=== PATIENT | male | born 1950 | race African-American/Black ===

== ENCOUNTER 2019-03-29 09:30 | Inpatient (IN) | payer OTHER ==
[~2019-03-29] VITALS: Ht 172.7 cm; Wt 97.7 kg
[2019-03-29] VITALS (7 sets, daily range): BP systolic 106–136; BP diastolic 61–79
[2019-03-29 09:59] LABS: HEMATOCRIT 36.3 % (42.0-52.0); HEMOGLOBIN 11.9 gm/dL (14.0-18.0); MCH 30.6 pg (26.0-34.0); MCHC 32.7 g/dL (28.0-37.0); MCV 93.5 fL (80.0-100.0); PLATELET COUNT 177 thou/uL (150-400); RBC 3.88 mil/uL (4.50-6.00); RDW 12.8 % (10.5-14.5); WBC 12.9 thou/uL (4.0-11.0)
[2019-03-29 10:09] LABS: CREATININE 2.1 mg/dL (0.7-1.3); POTASSIUM 3.7 mmol/L (3.5-5.1)
[2019-03-29 10:11] LABS: BE(vivo) -1.9 mmol/L (-2 to +3); HCO3 20.1 mmol/L (22.0-26.0); PCO2 26.9 mmHg (35.0-45.0); PO2 58.7 mmHg (80.0-100.0); pH 7.492 (7.360-7.450); sO2 92.9 % (92.0-98.0)
[2019-03-29 10:15] LABS: ALBUMIN 2.8 g/dL (3.4-5.0); DIRECT BILIRUBIN 1.3 mg/dL (<0.1-0.3); TOTAL BILIRUBIN 3.6 mg/dL (<0.1-1.0); TOTAL PROTEIN 7.3 g/dL (6.4-8.2)
[2019-03-29 10:44] LABS: ABSOLUTE NEUTROPHILS 10.7 thou/uL (1.4-8.2); PLATELET ESTIMATE NORMAL
[2019-03-29 10:47] LABS: URINE BLOOD 3+ (Negative); URINE CLARITY SL CLOUDY; URINE GLUCOSE-RANDOM* NEGATIVE (Negative); URINE KETONES NEGATIVE (Negative); URINE LEUKOCYTES-REFLEX NEGATIVE (Negative); URINE PROTEIN (DIPSTICK) 3+ (Negative); URINE SPECIFIC GRAVITY >= 1.030 (1.005-1.035)
[2019-03-29 10:48] LABS: URINE NITRITE-REFLEX POSITIVE (Negative)
[2019-03-29 10:49] LABS: ICTOTEST (BILI CONFIRMATORY) Negative (Negative); URINE BILIRUBIN NEGATIVE (Negative); URINE COLOR DARK YELLOW
[2019-03-29 10:56] LABS: AMORPHOUS URATES Moderate /LPF (None Seen); BACTERIA-REFLEX 1-9 Few /HPF (None Seen); HYALINE CASTS 0-3 Few /LPF (None Seen); SQUAMOUS 0-3 Few /LPF (0-3); URINE RBC 0-2 Rare /HPF (0-2); URINE WBC-REFLEX 0-5 Rare /HPF (0-5)
[2019-03-29] MEDS ORDERED: AMLODIPINE BESY10 MG PO (11:25)
[2019-03-29] MEDS ORDERED: LOSARTAN-HCTZ1 EAC2 PO (11:25)
[2019-03-29] MEDS ORDERED: TRELEGY ELLIPT1 EACH INH (11:25)
[2019-03-29] MEDS ORDERED: LOVASTATIN40 MG PO (11:26)
--- NOTE | 2019-03-29 16:17 | NUR ---
ATTEMPTED TO CALL REPORT TWICE. NURSE NOT TAKING REPORT
--- NOTE | 2019-03-29 18:23 | NUR ---
ASSUMMED PT CARE AT APPROXIMATELY 1655. A&O X4. ASSESSMENT CHARTED. FALL PRECAUTIONS IN PLACE. ADMISSION COMPLETE. VITAL SIGNS STABLE. PT DENIES HAVING ACUTE PAIN. PT DENIES HAVING CHEST PAIN. PT COMFORTABLE IN BED. PT DENIES HAVING FURTHER CONCERNS AT THIS TIME. PT AMBULATES STABLE/INDEPENDENT. NOTIFIED OF RED URINE. ORDERED U/A. OBTAINING U/A TO SEND TO LAB.
[2019-03-30] VITALS: BP 116/62
[2019-03-30 04:40] VITALS: BP 107/70
[2019-03-30 05:23] LABS: HEMATOCRIT 34.6 % (42.0-52.0); HEMOGLOBIN 11.1 gm/dL (14.0-18.0); MCH 30.7 pg (26.0-34.0); RBC 3.61 mil/uL (4.50-6.00); RDW 13.1 % (10.5-14.5); WBC 12.7 thou/uL (4.0-11.0)
--- NOTE | 2019-03-30 05:35 | NUR ---
SHIFT NOTE: ASSUMED PATIENT CARE AT 1900. PATIENT ALERT AND ORIENTED AND ABLE TO COMMUNICATE NEEDS. CONCERN OF HR IN 120 DURING THE SHIFT AND SHOVEL MECHANIC NOTIFIED. ORDER FOR METOPROLOL IV OBTAINED AND NOTED WITH EFFECT. UP AND GRICEL TO THE BATHROOM WITH STEADY GAIT. SR/ST ON THE MONITOR THIS NIGHT. CALL LIGHT AND PERSONAL ITEMS WITHIN REACH. WILL CONTINUE TO MONITOR.
[2019-03-30 05:42] LABS: CALCIUM 8.3 mg/dL (8.5-10.1); CREATININE 1.8 mg/dL (0.7-1.3); POTASSIUM 4.2 mmol/L (3.5-5.1)
[2019-03-30 07:47] VITALS: BP 109/77
--- NOTE | 2019-03-30 08:34 | EKG ---
[address] [address] ELECTROCARDIOGRAM REPORT Name: MALORIE BARROW Room #: 202-P ADM IN M.R.#: [id number] Admission: 03/29/19 Attend Phys: Jf Ho MD Discharge: Date of : 54 Report #: [id number] THIS REPORT FOR: //name// [facility] ED Test Date: 2019-03-29 Test Time: 09:38:21 Pat Name: MALORIE BARROW Department: Room: 202 Gender: M Disaster Recovery Consultant: DONALD : 1950 Requested By: Jonah Pabon Order Number: [id number] MD: Glenn Powers Measurements Intervals [place] Rate: 127 P: 37 WA: 109 QRS: 112 QRSD: 102 T: 107 QT: 415 QTc: 604 Interpretive Statements Sinus tachycardia Right axis deviation Nonspecific T abnormalities Prolonged QT interval No previous ECG available for comparison Electronically Signed On 03-30-2019 8:34:35 CDT by Glenn Powers [email or web address] <ELECTRONICALLY SIGNED> By: Glenn Powers MD, [facility] 03/30/19 0834 0938 7 Glenn Powers MD, FACC /EPI
[2019-03-30 11:35] VITALS: BP 100/58
[2019-03-30 17:21] VITALS: BP 110/81
--- NOTE | 2019-03-30 17:45 | EKG ---
[address] [address] ELECTROCARDIOGRAM REPORT Name: MALORIE BARROW JR Room #: 202-P ADM IN M.R.#: [id number] Admission: 03/29/19 Attend Phys: Jf Ho MD Discharge: Date of : 54 Report #: [id number] THIS REPORT FOR: //name// [facility] Test Date: 2019-03-30 Test Time: 11:05:05 Pat Name: MALORIE BARROW Department: Room: 202 P Gender: M Daylight Driller: KALYAN : 1950 Requested By: Jf Ho Order Number: [id number] MD: Glenn Powers Measurements Intervals [place] Rate: 126 P: 28 MD: 99 QRS: 126 QRSD: 114 T: 20 QT: 332 QTc: 481 Interpretive Statements Sinus tachycardia Ventricular premature complex Borderline intraventricular conduction delay Abnormal R-wave progression, late transition Borderline prolonged QT interval Compared to ECG 03/29/2019 09:38:21 Ventricular premature complex(es) now present Electronically Signed On 03-30-2019 17:45:10 CDT by Glenn Powers [email or web address] <ELECTRONICALLY SIGNED> By: Glenn Powers MD, FACC 03/30/19 1745 1105 1105 Glenn Powers MD, [facility] /EPI
--- NOTE | 2019-03-30 17:48 | NUR ---
ASSUMED CARE AT 0700, SHIFT ASSESSMENT DONE, MEDS GIVEN, VSS. DENIES PAIN, NAUSEA, VOMITING. UP AD GRICEL. ON 3L NC, SINUS TACHCARDIA ON THE MONITOR. RECEIVED FLU SHOT TODAY. WILL CONTINUE TO ASSESS AND ASSIST WITH ADLs NEEDED.
[2019-03-30 19:30] VITALS: BP 112/65
[2019-03-31] VITALS (7 sets, daily range): BP systolic 108–153; BP diastolic 57–85
--- NOTE | 2019-03-31 05:47 | NUR ---
PATIENT UP AD GRICEL IN ROOM. PATIENT A LITTLE BIT ANXIOUS ABOUT STAYING TO MUCH LONGER. PATIENT ASKED FOR SOMTHING TO SLEEP. STATES HE HAS HIS NIGHTLY WHISKEY AND BUDWISER WHICH HELPS HIM SLEEP. ORDER FOR MELATONIN RECIEVED. IT TOOK AWHILE FOR THE PATIENT TO FALL ASLEEP, BUT EVENTUALLY HE DID. NO FURTHER ANXIETY. MARGINAL OXYGENATION ON 3L NC. ENCOURAGE COUGH/DEEP BREATHING. CONTINUE RESP TX. HEART RATE AND RHYTHM STABLE. BLOOD PRESSURES STABLE. AFEBRILE. DRINKING ADEQUATE FLUIDS. NO AM LABS ORDERED. PT IS PROGRESSING TOWARDS GOALS.
[2019-03-31 10:01] LABS: HEMATOCRIT 33.5 % (42.0-52.0); HEMOGLOBIN 10.7 gm/dL (14.0-18.0); MCH 30.2 pg (26.0-34.0); MCV 94.5 fL (80.0-100.0); PLATELET COUNT 227 thou/uL (150-400); RBC 3.54 mil/uL (4.50-6.00); RDW 13.5 % (10.5-14.5); WBC 13.9 thou/uL (4.0-11.0)
[2019-03-31 10:10] LABS: CALCIUM 8.7 mg/dL (8.5-10.1); CREATININE 1.8 mg/dL (0.7-1.3); POTASSIUM 3.7 mmol/L (3.5-5.1)
[2019-03-31 10:25] LABS: ABSOLUTE NEUTROPHILS 11.7 thou/uL (1.4-8.2); ATYPICAL LYMPHS 1 %; METAMYELOCYTES 1 %; MYELOCYTES 1 %; PLATELET ESTIMATE NORMAL
--- NOTE | 2019-03-31 18:39 | NUR ---
ASSUMED CARE OF PT AT SHIFT CHANGE. ASSESSMENTS CHARTED. MEDS GIVEN PER JUL. PT HR INCREASED TO 120S MIDMORNING AND INTO AFTERNOON. NOTIFIED WHO ORDERED METOPROLOL TO START IMMEDIATELY. PT A&OX4. UP AD GRICEL. NO C/O PAIN. PT ON 2L WITH NO C/O OF SOA. WILL CONTINUE TO MONITOR AND FOLLOW POC.
[2019-04-01 03:16] LABS: HEMATOCRIT 30.8 % (42.0-52.0); HEMOGLOBIN 9.7 gm/dL (14.0-18.0); MCHC 31.6 g/dL (28.0-37.0); RBC 3.24 mil/uL (4.50-6.00); RDW 13.5 % (10.5-14.5); WBC 15.6 thou/uL (4.0-11.0)
[2019-04-01 03:26] LABS: CALCIUM 8.4 mg/dL (8.5-10.1); CREATININE 1.7 mg/dL (0.7-1.3); POTASSIUM 3.8 mmol/L (3.5-5.1)
[2019-04-01 04:40] VITALS: BP 127/57
--- NOTE | 2019-04-01 07:49 | NUR ---
PT HAVING A DIFFICULT TIME FINDING A COMFORTABLE POSITION TO SLEEP, NO C/O PAIN, REMAINS STEADY AND UP ADLIB, VSS, O2 INCREASED TO 4L NC FOR SAT 90% ON 2L, PT STILL HOPEFUL TO GO HOME, WILL CON'T TO MONITOR PER PPOC.
[2019-04-01 08:23] VITALS: BP 134/86
[2019-04-01 11:35] VITALS: BP 129/77
[2019-04-01 15:45] VITALS: BP 120/70
--- NOTE | 2019-04-01 16:50 | NUR ---
ASSUMED CARE OF PT AT SHIFT CHANGE. ASSESSMENTS CHARTED. MEDS GIVEN PER JUL. VSS. A&OX4. PT ON 2-4L O2 SATS FLUCTUATE. NO C/O PAIN. WILL CONTINUE FLUIDS TO IMPORVE CREATININE BEFORE CT SCAN TOMORROW. STILL NEED A OCCULT STOOL SAMLPE. SLIGHT FEVER TREATED WITH TYLENOL. PT UP AD RGICEL. PT NOT SLEEPING WELL. FAMILY REQUESTING SOMETHING FOR ANXIETY HS. WILL CONTINUE TO MONITOR AND FOLLOW POC.
[2019-04-01 19:12] VITALS: BP 130/71
--- NOTE | 2019-04-02 02:33 | NUR ---
ASSESSMENT: PT REMAIN ALERT AND ORIENT TIMES FOUR. UP AD GRICEL IN THE ROOM. VSS, AFEBRILE. SR-ST PER MONITOR. DENIES PAIN. DID GET MORE SLEEP SONIGHT. CT SCHEDULED FOR THE AM. TEMP WNL. TOLEARATING PO INTAKE. NO STOOL, OCCULT STOOL SAMPLE PENDING. SLOW PROGRESS TOWARDS DC GOALS, WILL CONTINUE TO MONITOR,
[2019-04-02 04:10] LABS: CALCIUM 8.6 mg/dL (8.5-10.1); CREATININE 1.4 mg/dL (0.7-1.3); POTASSIUM 3.8 mmol/L (3.5-5.1)
[2019-04-02 04:15] LABS: HEMATOCRIT 29.9 % (42.0-52.0); HEMOGLOBIN 9.5 gm/dL (14.0-18.0); MCH 30.4 pg (26.0-34.0); MCHC 31.8 g/dL (28.0-37.0); MCV 95.6 fL (80.0-100.0); RBC 3.13 mil/uL (4.50-6.00); RDW 13.6 % (10.5-14.5); WBC 15.4 thou/uL (4.0-11.0)
[2019-04-02 04:35] VITALS: BP 125/77
[2019-04-02 07:55] VITALS: BP 131/75
[2019-04-02 11:23] VITALS: BP 102/68
[2019-04-02 15:20] VITALS: BP 119/71
[2019-04-02 15:41] VITALS: BP 119/71
--- NOTE | 2019-04-02 18:09 | NUR ---
ASSUMED CARE OF PT AT SHIFT CHANGE. ASSESSMENTS CHARTED. MEDS GIVEN PER JUL. VSS. A&0X4. NO C/O PAIN. ON 4L MASK. NO NC D/T PAST NOSE SURGERY. PT STEADY ON FEET. WALKED IN [place] WITH A GOOD GAIT. SATS AT 86 AFTER WALK, BUT RECOVERED TO 93 QUICKLY. PLAN FOR POSSIBLE DC TOMORROW. WILL CONTINUE TO MONITOR AND FOLLOW POC.
--- NOTE | 2019-04-02 18:13 | NUR ---
ASSUMED CARE OF PT AT SHIFT CHANGE. ASSESSMENTS CHARTED. MEDS GIVEN PER JUL. VSS. A&OX4. NO C/O PAIN. PULM SAID NO CT WAS NECESSARY, SO CONT WITH ABX AND INCREASE ACTIVITY TOLERATED. WALKED TWICE WITH SISTER OFF UNIT WITH OX TANK. TOLERATED WILL. PLAN TO CONT CARE FOR 2-3 DAYS. WILL CONTINUE TO MONITOR AND FOLLOW POC.
[2019-04-02 20:15] VITALS: BP 104/63
[2019-04-03 05:40] LABS: HEMATOCRIT 27.9 % (42.0-52.0); HEMOGLOBIN 8.9 gm/dL (14.0-18.0); MCH 30.6 pg (26.0-34.0); MCV 95.5 fL (80.0-100.0); RBC 2.92 mil/uL (4.50-6.00); RDW 14.2 % (10.5-14.5); WBC 14.7 thou/uL (4.0-11.0)
[2019-04-03 05:54] LABS: CREATININE 1.3 mg/dL (0.7-1.3); POTASSIUM 3.4 mmol/L (3.5-5.1)
[2019-04-03 06:03] VITALS: BP 113/73
[2019-04-03 08:00] VITALS: BP 121/76
--- NOTE | 2019-04-03 14:37 | NUR ---
met with patient, grandson at bedside. Patient sleeping, grandson gave report. 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 Patient lives with in multilevel home but no difficulty with steps. Supportive family in area. Tenative plan home no needs. Patient cont on one liter of oxygen and he doesnt wear at home.
[2019-04-03 16:00] VITALS: BP 120/76
--- NOTE | 2019-04-03 16:59 | NUR ---
PT IS ALERT AND ORIENTED X4. FAMILY AT BEDSIDE VISITING TODAY. ON 2 LITERS NASAL CANULA. LUNGS ARE WHEEZY NOTED. UP IN ROOM IN ISOLATION FOR MRSA. ON ANTIBIOTICS FOR PNEUMONIA. PLEASANT EATING HIS MEAL TRAYS. ABDOMEN IS ROUND AND SOFT BM TODAY FORMED. NO ISSUES OR CONCERNS NOTED AT THIS TIME WITH PLAN OF CARE OF PT. EDUCATION DONE ON HOSPITALIZATION PER NURSING
[2019-04-03 21:24] VITALS: BP 119/69
[2019-04-04 01:25] VITALS: BP 106/68
[2019-04-04 05:33] LABS: HEMATOCRIT 26.8 % (42.0-52.0); HEMOGLOBIN 8.5 gm/dL (14.0-18.0); MCH 30.4 pg (26.0-34.0); MCHC 31.6 g/dL (28.0-37.0); MCV 96.1 fL (80.0-100.0); RBC 2.79 mil/uL (4.50-6.00); RDW 13.9 % (10.5-14.5); WBC 16.7 thou/uL (4.0-11.0)
[2019-04-04 05:52] VITALS: BP 112/69
--- NOTE | 2019-04-04 07:19 | NUR ---
PT RESTING ON AND OFF IN ROOM, VSS, NO C/O PAIN, REMAINS IN ISOLATION FOR MRSA, WILL CON'T TO MONITOR PER PPOC.
[2019-04-04 08:00] VITALS: BP 123/71
[2019-04-04] MEDS ORDERED: LOPRESSOR25 PO (10:35)
[2019-04-04 16:00] VITALS: BP 108/70
--- NOTE | 2019-04-04 16:13 | NUR ---
ASSUMED CARE AT SHIFT CHANGE, ALERT AND ORIENTED X4. PROGRSSEING TOWARDS GOALS VSS AND AFEBRILE. PLAN TO CONTINUE WITH POC, AND DISCHARGE HOME TOMORROW.
[2019-04-04 20:31] VITALS: BP 128/77
[2019-04-05 04:25] VITALS: BP 115/61
--- NOTE | 2019-04-05 06:30 | NUR ---
ASSUME CARE 1900. PT/VITALS STABLE. DENIES ANY PAIN. UP AD GRICEL. ASSESSMENT CHARTED. PROGRESSING WELL WITH POC. PLAN IS TO CONTINUE TREATING WITH ABX. POSSIBLE DISCHARGE WITHIN 1-2 DAYS. WILL CONTINUE TO MONITOR AND FOLLOW WITH POC
[2019-04-05 07:40] VITALS: BP 108/68
--- NOTE | 2019-04-05 09:45 | NUR ---
Assess due to length of stay. Admit with pneumonia, GLORIA. On regular diet, oral intake initially decreased and now showing improving intake 50-75%. Discharge pending soon. Low nutrition risk
--- NOTE | 2019-04-05 12:50 | NUR ---
FAXED REFERRAL TO [facility] FOR HOME O2 SPOKE WITH JOVANNI IN INTAKE SHE RECEIVED REFERRAL AND WILL HAVE 02 TANK DELIVERED PRIOR TO DC TODAY.
--- NOTE | 2019-04-05 15:10 | NUR ---
CONSULTED TO PLACE A PICC FOR A PATIENT DISCHARGING HOME WITH IV ANTIBIOTICS. ORDER AND CONSENT NOTED. A TIME OUT WAS COMPLETED WITH THE CCU RN AT BEDSIDE. THE PATIENT VERBALIZED UNDERSTANDING AFTER THE PROCEDURES WELL BENIFITS AND RISKS FOR DVT AND INFECTION WERE DISCUSSED. A #4F SINGLE LUMEN POWER PICC WAS PLACED PER HOSPITAL POLICY. LINE WAS TRIMMED TO 42CM AND ADVANCED WITHOUT DIFFICULTY. A STAT CHEST XRAY WAS ORDERED FOR CONFIRMATION
[2019-04-05 15:24] VITALS: BP 108/68
--- NOTE | 2019-04-05 15:26 | NUR ---
PT NEEDING HH FOR IV ABX AT HOME FAXED REFERRAL TO [facility] HH RECEIVED CONFIRMATION AND SPOKE WITH MARIA ELENA IN INTAKE AND THEY CAN ACCEPT AND WILL START VISITS TOMORROW AND WILL NOTIFY PT TIME OF VISITS.
[2019-04-05 15:46] VITALS: BP 108/68
[2019-04-05] MEDS ORDERED: LINEZOLID600 MG PO (16:06)
[2019-04-05] MEDS ORDERED: CEFTAZIDIME1 GM IV (16:08)
--- NOTE | 2019-04-05 16:10 | NUR ---
rec consult to inquire into ceftaz. referral to [facility] approx $10 a day and $14 a day for supplies then at 100% once out of pocket met. Discussed with patient. He reports his at home can assist and 20 year old grandson. he is aware of HH will not be coming for every dose of antibiotic. patient with no preference of HH agency whoever is in network with [facility]. referral to [facility]. Referral sent. Sp with dtr who reports patient called her and he is to dc today. sp with phys who will place final orders to arrange home infusion and HH care. Arranged home oxygen with [facility] who delivered oxygen/
[2019-04-05 16:26] VITALS: BP 108/68
--- NOTE | 2019-04-05 16:38 | NUR ---
patient to dc home on home infusion. Oxygen delivered to room. Dtr present and rec teaching regarding IV antibiotic. Cost is actually $20 a day misquoted earlier. Dtr in agreement with plan for home today. [facility] arranged for first visit on Wednesday. Faxed pertinent orders to infusion company. [facility] provided oxygen.
--- NOTE | 2019-04-05 16:48 | NUR ---
FAXED REFERRAL TO [facility] SPOKE WITH SKY IN INTAKE AND SHE RECEIVED REFERRAL AND CAN ACCEPT THEY CAN START VISITS WEDNESDAY AND WILL NOTIFY PT TIME OF VISITS THEY WILL NEED NURSING AND PT.
--- NOTE | 2019-04-05 17:05 | NUR ---
ASSUMED CARE AT SHIFT CHANGE, ALERT AND ORIENTED X4. DENIES ANY DISCOMFORT. VSS AND AFEBRILE. DISCHARGE AND MEDICATION INSTRUCTIONS GIVEN TO PATIENT AND FAMILY, AND THEY VERBALIZED UNDERSTANDING. VISITED WITH HOME HEALTH INFUSION NURSE.
--- NOTE | 2019-04-06 11:21 | HC ---
[facility] [place] [address] CONSULTATION Name: MALORIE BARROW Room #: 202-P [facility] IN ..#: [id number] Admission: 03/29/19 Attend Phys: Jf Ho MD Discharge: 04/05/19 Date of : 54 Report #: [id number] THIS REPORT FOR: //name// CC: Jf Ho Physician staff ELMER TOVAR[facility] DATE OF SERVICE: 04/05/2019 INFECTIOUS DISEASE CONSULTATION REASON FOR CONSULTATION: I was asked to evaluate concerning complicated pneumonia. HISTORY OF PRESENT ILLNESS: This 68-year-old presented to the Emergency Room on 03/29/2019 with right-sided pleuritic chest pain, fever and chills. Chest x-ray showed dense right lung pulmonary infiltrate. CT scan has shown possible cavitary component. Cultures have revealed MRSA and Pseudomonas aeruginosa. He has been treated with broad antibiotic coverage, including vancomycin and Zosyn. He has had intermittent fever. He is on oxygen, now at 5 liters per nasal cannula. He otherwise has been relatively asymptomatic as far as respiratory complaints. He does become short of breath with any activity. Minimal cough or sputum production. Chest discomfort has resolved. Chills have resolved. He has been treated with vancomycin and Zosyn. Expectorated sputum showed MRSA and pseudomonas. The patient is a long-term smoker, having quit several years ago. He does have some mild dyspnea on exertion, but otherwise has been able to maintain normal activity of daily living. A day prior to his presentation developed rigors and fever. He denies any cough or sputum production. No hemoptysis. Due to his fever, he presented to the Emergency Room. He has had no significant travel. No history of previous pneumonia, although it sounds like he has had intermittent bouts of bronchitis. He has a pet dog. His has been without respiratory issues. 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 Has underlying history of hypertension. No other cardiac issues noted. His appetite has been good. He has had no weight loss. No tuberculosis exposure. No HIV risk factors. ALLERGIES: None other than SHELLFISH. MEDICATIONS: As noted on his MAR including amlodipine, vancomycin and Zosyn. PAST MEDICAL HISTORY: Unremarkable. FAMILY HISTORY: Noncontributory. SOCIAL HISTORY: Smoker. Minimal alcohol intake. No other details as noted above. [address] [address] CONSULTATION Name: MALORIE BARROW Room #: 202-P [facility] IN [facility].#: [id number] Admission: 03/29/19 Attend Phys: Jf Ho MD Discharge: 04/05/19 Date of : 54 Report #: [id number] REVIEW OF SYSTEMS: Ten-point review was negative other than what has been described above. PHYSICAL EXAMINATION: VITAL SIGNS: He was afebrile and hemodynamically stable. He is on 5 liters of oxygen per nasal cannula. GENERAL: He was sitting up in his chair, in no distress. MENTAL STATUS: Normal. Mood was normal without anxiety or depression. SKIN: Without rash. A 1+ peripheral edema. HEENT: Eyes without scleral icterus. No palpable adenopathy. Mouth without mucositis. NECK: Supple with no thyromegaly or mass. LUNGS: Consolidation in the right mid posterior chest. No rub. HEART: Regular without murmur, gallop or rub. ABDOMEN: Soft, nontender. No hepatosplenomegaly or mass. GENITOURINARY: External genitalia without lesion. RECTAL: Not performed. EXTREMITIES: Without clubbing or cyanosis. A 2+ lower extremity edema below the knees. NEUROLOGIC: Cranial nerves intact. Strength in upper and lower extremities was normal. Sensation in upper and lower extremities normal. BACK: Nontender. No CVA tenderness. Stance and gait were normal. LABORATORY STUDIES: Reviewed. MICROBIOLOGY: Reviewed. IMAGING: Chest x-ray and CT scan were reviewed, and I agree with interpretation. IMPRESSION: A 68-year-old with: 1. Extensive right lung pneumonia, community-acquired, with methicillin-resisted staphylococcus aureus and pseudomonas identified from respiratory secretions. CT scan shows evidence of possible necrotizing infection. His white count remains elevated. The patient is not toxic in appearance. He is ambulatory and was hoping to discharge today. 2. Hypertension. 3. Long-term smoker with likely underlying chronic obstructive pulmonary disease. This may have impacted the findings on CT scan. RECOMMENDATIONS: I would continue aggressive antibiotic coverage for MRSA and pseudomonas. We will plan on Zyvox along with PICC placement and ceftazidime for antibiotic therapy as an outpatient. We would recommend weekly laboratory studies with followup chest x-ray and CT scan. If no improvement, we will need [address] [address] CONSULTATION Name: MALORIE BARROW JR Room #: 202-P DIS IN M.R.#: [id number] Admission: 03/29/19 Attend Phys: Jf Ho MD Discharge: 04/05/19 Date of : 54 Report #: [id number] further evaluation including bronchoscopy. We will discuss further with nephrology social worker. PICC will be placed. We will follow up as an outpatient for further recommendations. <ELECTRONICALLY SIGNED> By: Yasir Santana MD 04/06/19 1121 2044 [id number] Yasir Santana MD /nt
--- NOTE | 2019-04-06 16:25 | NUR ---
spoke with Dr Santana and rec additinal orders. Faxed to [facility] and [facility]. Sp with [facility] care who will see patient Wednesday and have all information needed. [facility] also rec new orders faxed.
== END 2019-04-05 17:37 | disposition home health service (06) | DRG 871 ==
LOC: ER 09:30 → EROBS 11:55 → 2N 11:55 → ENTRNSPT 04-05 17:24 → 2N 04-05 17:37
PROVIDERS: Emergency Medicine; Hospitalist; Internal Medicine; ADMIT Hospitalist
PROC: 02HV33Z Insertion of Infusion Device into Superior Vena Cava, Percutaneous Approach (ICD-10-PCS; principal; 2019-04-05)
DX: A41.9 Sepsis, unspecified organism (principal); J96.01 Acute respiratory failure with hypoxia; G93.41 Metabolic encephalopathy; J15.212 Pneumonia due to Methicillin resistant Staphylococcus aureus; J15.1 Pneumonia due to Pseudomonas; N17.9 Acute kidney failure, unspecified; E87.1 Hypo-osmolality and hyponatremia; D62 Acute posthemorrhagic anemia; E78.5 Hyperlipidemia, unspecified; J45.909 Unspecified asthma, uncomplicated; I10 Essential (primary) hypertension; Z91.013 Allergy to seafood; Z87.891 Personal history of nicotine dependence; Z79.899 Other long term (current) drug therapy; Z23 Encounter for immunization
CPT/HCPCS: 10081; 10797

== ENCOUNTER 2019-04-07 16:16 | Inpatient (IN) | payer OTHER ==
[~2019-04-07] VITALS: Ht 172.7 cm; Wt 98.9 kg
[~2019-04-07 16:16] MED LIST: AMLODIPINE BESY10 MG PO; CEFTAZIDIME1 GM IV; LINEZOLID600 MG PO; LOPRESSOR25 PO; LOSARTAN-HCTZ1 EAC2 PO; LOVASTATIN40 MG PO; TRELEGY ELLIPT1 EACH INH
[2019-04-07 16:18] VITALS: BP 127/72
[2019-04-07 17:33] LABS: PLATELET COUNT 520 thou/uL (150-400)
[2019-04-07 17:36] LABS: BE(vivo) 2.7 mmol/L (-2 to +3); HCO3 26.1 mmol/L (22.0-26.0); PCO2 35.9 mmHg (35.0-45.0); PO2 60.6 mmHg (80.0-100.0)
[2019-04-07 17:39] LABS: HEMATOCRIT 26.4 % (42.0-52.0); HEMOGLOBIN 8.4 gm/dL (14.0-18.0); MCH 29.9 pg (26.0-34.0); MCHC 31.8 g/dL (28.0-37.0); MCV 94.1 fL (80.0-100.0); RBC 2.81 mil/uL (4.50-6.00); RDW 13.7 % (10.5-14.5); WBC 16.8 thou/uL (4.0-11.0)
[2019-04-07 17:40] LABS: CALCIUM 8.9 mg/dL (8.5-10.1); CREATININE 1.1 mg/dL (0.7-1.3); POTASSIUM 3.9 mmol/L (3.5-5.1)
[2019-04-07 17:46] LABS: ALBUMIN 1.8 g/dL (3.4-5.0); TOTAL BILIRUBIN 0.5 mg/dL (<0.1-1.0); TOTAL PROTEIN 6.7 g/dL (6.4-8.2)
[2019-04-07 18:06] LABS: ABSOLUTE NEUTROPHILS 15.1 thou/uL (1.4-8.2)
[2019-04-07 18:36] LABS: URINE BILIRUBIN NEGATIVE (Negative); URINE BLOOD TRACE (Negative); URINE CLARITY CLEAR; URINE COLOR YELLOW; URINE GLUCOSE-RANDOM* NEGATIVE (Negative); URINE KETONES NEGATIVE (Negative); URINE LEUKOCYTES-REFLEX NEGATIVE (Negative); URINE NITRITE-REFLEX NEGATIVE (Negative); URINE PROTEIN (DIPSTICK) TRACE (Negative); URINE UROBILINOGEN 0.2 E.U./dl (0.2-1.0)
[2019-04-07 19:38] VITALS: BP 122/68
[2019-04-07 20:35] VITALS: BP 117/65
[2019-04-07 21:16] VITALS: BP 121/77
[2019-04-07 23:55] VITALS: BP 110/73
[2019-04-08 03:29] VITALS: BP 108/71
[2019-04-08 04:15] LABS: HEMATOCRIT 25.7 % (42.0-52.0); HEMOGLOBIN 8.1 gm/dL (14.0-18.0); MCH 30.1 pg (26.0-34.0); MCHC 31.4 g/dL (28.0-37.0); MCV 95.6 fL (80.0-100.0); RBC 2.69 mil/uL (4.50-6.00); RDW 13.9 % (10.5-14.5); WBC 15.4 thou/uL (4.0-11.0)
[2019-04-08 04:36] LABS: CALCIUM 8.1 mg/dL (8.5-10.1); CREATININE 1.3 mg/dL (0.7-1.3); POTASSIUM 3.9 mmol/L (3.5-5.1)
[2019-04-08 07:12] VITALS: BP 111/69
--- NOTE | 2019-04-08 07:22 | NUR ---
PT ARRIVED TO UNIT APPROX 2029, ADMISSION AND ASSESSMENT COMPLETED, CONSENTS SIGNED. PT A&Ox4, PLEASANT, STEADY ON FEET/UP AD GRICEL. PLACED ON TELE SR IN 90'S. WEARING 2L O2 NC, DENIES SOB WITH EXERTION, C/O DRY/NONPRODUCTIVE COUGH. WAS RECEIVING IV ABX THROUGH A PICC AT HOME; CXR CONFIRMED PICC PLACEMENT. IV FLUIDS AND ABX STARTED. BECAME WHEEZY DURING THE NIGHT, OBTAINED ORDER FOR PRN RT TREATMENTS; ALSO GAVE PRN COUGH SYRUP. NO OTHER CONCERNS, SHIFT REPORT GIVEN AT 0700.
--- NOTE | 2019-04-08 11:27 | NUR ---
ORDERS RECEIVED FOR EVAL AND TREAT. PER NURSING NOTES, Pt IS UP AD GRICEL. SPOKE WITH Pt WHO STATES HE IS HAVING NO DIFFICULTY WITH MOBILITY AND DOES NOT FEEL WEAK. Pt DECLINING FORMAL P.T. EVAL BUT OBSERVED HIM AMBULATING IN THE ROOM AND HE APPEARS SAFE.
[2019-04-08 11:31] VITALS: BP 139/113
[2019-04-08 15:37] VITALS: BP 113/79
--- NOTE | 2019-04-08 16:12 | NUR ---
Assumed care approx. 0700 this AM. Pt stable and in no distress. ID to see pt and dc previous IV abx then start new ones. Pt remains on 2LNC-pt slightly SOB with activity. Pt to wear O2 at all times per RT recommendation at this time. Right upper arm PICC in place. Pt slightly progressing toward plan of care goals.
[2019-04-08 19:54] VITALS: BP 107/61
[2019-04-09 03:46] VITALS: BP 102/63
--- NOTE | 2019-04-09 05:09 | NUR ---
ASSUMED CARE AT 1900. PT DENIES PAIN OR NAUSEA. DENIES FEELING SOB AT REST, SATTING MID 90'S ON 2L O2; STILL REPORTS PERSISTENT, DRY COUGH THAT KEEPS HIM FROM LYING IN BED COMFORTABLY, EVEN WITH HIS HOB ELEVATED. HAS BEEN SITTING UP IN A CHAIR MOST OF THE NIGHT. PROVIDED PT WITH A SAMPLE CUP SO THAT HE CAN PROVIDED A SPUTUM SAMPLE IF POSSIBLE. PT REPORTS SOME RELIEF WITH DELSYM COUGH SYRUP, BUT STATES IT ONLY LASTS A FEW HOURS, WOULD LIKE SOMETHING TO USE IN BETWEEN DOSES. LUNGS STILL CRACKLING ON THE RIGHT SIDE, NO WHEEZES NOTED OVERNIGHT. CONTINUES TO HAVE 2+ EDEMA IN BLE, ALTHOUGH IT IS SOFTER/LESS PITTING THAN PREVIOUS NIGHT; PT IS NOW WEARING KNEE-HIGH JANIA HOSE. NO OTHER CONCERNS, WILL CONTINUE TO MONITOR.
[2019-04-09 08:21] VITALS: BP 115/68
[2019-04-09 12:04] VITALS: BP 103/60
[2019-04-09 15:48] VITALS: BP 113/60
--- NOTE | 2019-04-09 15:54 | NUR ---
RECEIVED PT'S CARE AROUND 0700; PT. ON CHAIR; AOX4; WATCHING TV; DURING ASSESSMENT NO C/O PAIN; AM MEDICATION GIVEN; EDUCATED ABOUT FALL PRECAUTIONS; ST. UNDERSTANDING; O2 SAT ABOVE 90% ON NC; SR ON HEART MONITOR THROUGH THE DAY; VS WNL; NO NEW FINDINGS; ISOLATION MANTAINED THROUGH THE DAY; AROUND NOON PT'S PT. CONTACT BALLISTICS TEACHER BECAUSE RECENTLY ON PT'S HOUSE WAS FOUND MOLD, SO PT'S DAUGHTER WOULD LIKE TO KNOW THE POSSIBLE CONSEQUENCES FOR PT. WHENEVER HE GETS D/C; EXPLAINED PHYSICIAN AT THE [facility] NO AROUND THE UNIT, BUT WILL NOTIFIED NIGHT NURSE, SO INFORMATION CAN BE GOTTEN DURING THE MORNING OF 04/10/19; ST. UNDERSTANDING; PT. ST. HAVING A BM EARLY ON THE MORNING; ASSESSMENT CHARGED; FOLLOWING POC; WILL PASS ON REPORT;
[2019-04-09 19:10] VITALS: BP 120/62
[2019-04-10 04:11] VITALS: BP 124/81
--- NOTE | 2019-04-10 04:28 | NUR ---
ASSUMED PT CARE AROUND 1900. A&OX4. DENIES ANY PAIN OR SIGNIFICANT SOA. UP AD GRICEL AROUND THE ROOM WITH STEADY GAIT. O2 SATS STABLE ON 2L NC. STILL HAS 3+ BLE EDEMA. KNEE HIGH JANIA HOSE IN PLACE AND PT INSTRUCTED TO KEEP LEGS ELEVATED WHEN SITTING OR LYING DOWN. VSS. AFEBRILE. ABX GIVEN ORDERED. PT SLEPT MOST OF THE NIGHT. RESP EVEN AND UNLABORED. NO MAJOR COMPLAINTS THIS SHIFT. PROGRESSING TOWARD POC GOALS. WILL CONTINUE TO MONITOR FURTHER.
[2019-04-10 08:00] VITALS: BP 134/77
[2019-04-10 12:02] VITALS: BP 115/74
--- NOTE | 2019-04-10 14:16 | NUR ---
INITIAL ASSESSMENT: SW reviewed chart and spoke with nursing and attending physician. Pt was admitted from home due to fever. Pt was recently discharged home from [facility] on 04/06 with HH services, Home IV abx and Home O2. Pt remains on IV abx: Fortaz and PO abx: cipro and zyvox. Pt currently off the unit. Pt to have venous US of RUE. Per chart, pt lives at home with his and 20 yr old grandson. Pt is alert/orientated x 4. Pt is normally independent with ADLs. Pt has home O2 in place through [facility], HH through [facility] and Home IV abx through [facility]. SW is following to assist as needed with discharge planning.
--- NOTE | 2019-04-10 15:28 | NUR ---
DISCHARGE PLANNING. ANTICIPATED DISCHARGE TO HOME WITH HOME HEALTH SERVICES. PATIENT REFERRAL FAXED TO [facility]. CALL RECEIVED FROM NEVIN. [facility] INTAKE. ACCEPTING OF PATIENT AT DISCHARGE. PCP PROVIDED TO NEVIN. FOLLOWING TO ASSIST WITH DISCHARGE.
[2019-04-10 16:53] VITALS: BP 116/65
--- NOTE | 2019-04-10 17:03 | NUR ---
pt is A&OX3, PT is continuing IV abx and breathing treatment, pt is off o2 today, pt's vs and o2sat are stable, pt denies pain and sob , pt has slowly meeting care plan goals.
[2019-04-10 20:04] VITALS: BP 120/72
--- NOTE | 2019-04-10 20:05 | NUR ---
RN has called dr to report pt has R upper extremity DVT , new order received, RN has reported to next shift.
[2019-04-11 04:16] VITALS: BP 98/70
--- NOTE | 2019-04-11 05:22 | NUR ---
ASSUMED CARE AT 1900. PT DENIES SOB, REPORTS BREATHING WELL ON RA. LUNG SOUNDS DIMINISHED WITH FAINT, FINE CRACKLES IN BASES, AND CONTINUES TO REPORTS INTERMIT DRY COUGH. DENIES PAIN OR NAUSEA. PER ORDERS, REMOVED PICC LINE AT START OF SHIFT D/T DVT AT [facility] SITE. EDUCATED PT ABOUT S/S TO BE AWARE OF IF THE CLOT WERE TO BREAK LOOSE. NEW IV STARTED IN LEFT AC FOR IV ABX. CONTINUES TO HAVE NONPITTING, 2+ SWELLING IN ANKLES DESPITE WEARING JANIA HOSE. NO OTHER CONCERNS, WILL CONTINUE TO MONITOR.
[2019-04-11 08:06] VITALS: BP 131/90
[2019-04-11 11:16] VITALS: BP 120/76
--- NOTE | 2019-04-11 14:30 | NUR ---
SW reviewed chart and spoke with nursing and attending physician. Pt has RUE DVT. Pt will continue IV abx while in the hospital. Pt should d/c home on PO abx. Pt was on service with [facility] for Home infusion and [facility]. [facility] is following to assist as needed with discharge planning.
[2019-04-11 15:56] VITALS: BP 121/68
--- NOTE | 2019-04-11 16:55 | NUR ---
pt is A&OX3, PT is continuing iv and po abx, pt was off o2 at 04/10/19 am, pt' R arm PICC line has removed at 04/10/19 , pt has started new medication for R arm DVT, PT's R arm still has edema, but pt denies pain and sob , pt gets up to chair without assist, pt has slowly meeting most of care plan goals at this time.
[2019-04-11 19:56] VITALS: BP 144/80
[2019-04-12 04:23] VITALS: BP 144/32
--- NOTE | 2019-04-12 05:33 | NUR ---
Pt. stated he slept fair during the night and woke up feeling better. Afebrile. Tolerating room air well with no respiratory distress. Denies pain. Making progress towards care plan goals.
[2019-04-12 07:30] VITALS: BP 135/85
[2019-04-12 09:50] LABS: HEMATOCRIT 27.2 % (42.0-52.0); HEMOGLOBIN 8.5 gm/dL (14.0-18.0); MCH 29.7 pg (26.0-34.0); MCHC 31.2 g/dL (28.0-37.0); MCV 95.4 fL (80.0-100.0); RBC 2.85 mil/uL (4.50-6.00); RDW 13.9 % (10.5-14.5); WBC 13.8 thou/uL (4.0-11.0)
[2019-04-12 10:01] LABS: ALBUMIN 2.1 g/dL (3.4-5.0); CALCIUM 8.6 mg/dL (8.5-10.1); CREATININE 1.3 mg/dL (0.7-1.3); MAGNESIUM 1.7 mg/dL (1.8-2.4); POTASSIUM 4.6 mmol/L (3.5-5.1); TOTAL BILIRUBIN 0.3 mg/dL (<0.1-1.0); TOTAL PROTEIN 6.1 g/dL (6.4-8.2)
[2019-04-12 12:16] VITALS: BP 114/72
[2019-04-12 15:52] VITALS: BP 132/79
--- NOTE | 2019-04-12 15:59 | NUR ---
on-going assessment: cm reviewed chart and met with patient at the bedside. cm discussed home health. pt reports he does not feel he needs it. PT DECLINES HOME HEALTH AT DISCHARGE AND REPORTS HE WILL CALL HIS PCP IF HE CHANGES HIS MIND.
[2019-04-12] MEDS ORDERED: PROBIOTIC & AC1 EACH PO (16:30)
[2019-04-12] MEDS ORDERED: CIPROFLOXACIN250 M2 PO (16:30)
[2019-04-12] MEDS ORDERED: LINEZOLID600 MG PO (16:30)
[2019-04-12] MEDS ORDERED: PREDNISONE 10 M10 M1 PO (16:30)
[2019-04-12] MEDS ORDERED: TYLENOL325 MG PO (16:30)
[2019-04-12] MEDS ORDERED: MUCINEX600 MG PO (16:30)
[2019-04-12] MEDS ORDERED: ELIQUIS5 MG PO (16:30)
[2019-04-12] MEDS ORDERED: [UNRECOGNIZED DRUG - REMARK] (16:39)
--- NOTE | 2019-04-12 16:53 | NUR ---
ASSUMED CARE OF PT AT 0700. PT ALERT AND ORIENTED IN NO ACUTE DISTRESS. COMPLAINS OF OCCASIONAL ABDOMINAL PAIN. FRUSTRATED THAT NOVALIN 70/30 NOT AVAILABLE IN OUTPATIENT PHARM UNTIL TOMORROW, BUT IS AGREEABLE FOR DISCHARGE. PHYSICIAN AND RN DISCUSSED WITH PATIENT THAT HE IS COVERED WITH LONG ACTING INSULIN UNTIL TOMORROW. ALL OTHER MEDS AVAILABLE IN OUT PATIENT PHARMACY. BLOOD SUGAR BEFORE D/C IS 94. WAITING ON TRANSPORT FOR D/C.
[2019-04-12 16:58] VITALS: BP 132/79
--- NOTE | 2019-04-13 17:05 | EKG ---
[address] [address] ELECTROCARDIOGRAM REPORT Name: MALORIE BARROW Room #: 358-P DIS IN M.R.#: [id number] Admission: 04/07/19 Attend Phys: Arie Gloria Discharge: 04/12/19 Date of : 54 Report #: [id number] THIS REPORT FOR: //name// [facility] Test Date: 2019-04-12 Test Time: 14:23:03 Pat Name: MALORIE BARROW Department: Room: 358 P Gender: M Territory Sales Manager: JIMMY : 1950 Requested By: Yasir Santana Order Number: [id number] MD: Glenn Powers Measurements Intervals [place] Rate: 76 P: 64 MA: 160 QRS: 7 QRSD: 107 T: 48 QT: 430 QTc: 484 Interpretive Statements Sinus rhythm Borderline prolonged QT interval Compared to ECG 03/30/2019 11:05:05 Sinus tachycardia no longer present Ventricular premature complex(es) no longer present Electronically Signed On 04-13-2019 17:05:39 FLOOR FRAMER by Glenn Powers [email or web address] <ELECTRONICALLY SIGNED> By: Glenn Powers MD, [facility] 04/13/19 1705 1423 1423 Glenn Powers MD, [facility] /EPI
== END 2019-04-12 18:02 | disposition home health service (06) | DRG 314 ==
LOC: ER 16:16 → EROBS 19:23 → 3W 19:23 → ENTRNSPT 04-12 17:55 → 3W 04-12 18:02
PROVIDERS: Internal Medicine; Nurse Practitioner Family; ADMIT Hospitalist
PROC: 02PYX3Z Removal of Infusion Device from Great Vessel, External Approach (ICD-10-PCS; principal; 2019-04-10)
DX: T82.868A Thrombosis due to vascular prosthetic devices, implants and grafts, initial encounter (principal); A41.9 Sepsis, unspecified organism; J18.9 Pneumonia, unspecified organism; J96.01 Acute respiratory failure with hypoxia; J15.212 Pneumonia due to Methicillin resistant Staphylococcus aureus; J15.1 Pneumonia due to Pseudomonas; I82.621 Acute embolism and thrombosis of deep veins of right upper extremity; J98.11 Atelectasis; I10 Essential (primary) hypertension; E78.5 Hyperlipidemia, unspecified; Y95 Nosocomial condition; Y84.8 Other medical procedures as the cause of abnormal reaction of the patient, or of later complication, without mention of misadventure at the time of the procedure; Z86.14 Personal history of Methicillin resistant Staphylococcus aureus infection; Z87.01 Personal history of pneumonia (recurrent); Z79.899 Other long term (current) drug therapy; Z91.013 Allergy to seafood; Z87.891 Personal history of nicotine dependence; Y92.89 Other specified places as the place of occurrence of the external cause
CPT/HCPCS: 10879